=== PATIENT | female | born 1955 | race Caucasian/White ===

== ENCOUNTER 2017-03-10 17:13 | Emergency (ER) | payer BC ==
[~2017-03-10] VITALS: Ht 157.5 cm; Wt 81.3 kg
[2017-03-10 18:53] LABS: MCH 28.9 PG (29.0-34.0); MCHC 32.8 G/DL (30.0-36.0); MEAN PLAT.VOLUME 10.3 uM^3 (9.5-12.4); PLATELET COUNT 253 K/uL (156-360); RBC DIS.WIDTH-CV 12.8 % (11.8-14.6); RBC DIS.WIDTH-SD 41.4 % (39-53); RED BLOOD COUNT 4.09 M/uL (3.80-5.20); WHITE BLOOD COUNT 9.6 K/uL (4.1-10.2)
[2017-03-10] MEDS ORDERED: ZOFRAN ODT4 MG PO (18:56)
[2017-03-10] MEDS ORDERED: PERCOCET 5/31 TABLET PO (18:56)
[2017-03-10] MEDS ORDERED: STOOL SOFTENER250 MG PO (18:56)
[2017-03-10 19:05] LABS: CHLORIDE 105 mEq/L (99-109); POTASSIUM 4.6 mEq/L (3.7-5.4); SODIUM 137 mEq/L (136-147)
[2017-03-10 19:08] LABS: GLUCOSE 108 mg/dL (70-99)
[2017-03-10 19:09] LABS: ANION GAP 12 MEQ/L (2-14); TOTAL BILIRUBIN 0.2 mg/dL (0.0-1.0)
[2017-03-10 19:11] LABS: ALKALINE PHOSPHATASE 100 IU/L (3-129); GFR ESTIMATE (CALCULATED) > 59 mL/min/
[2017-03-10 19:12] LABS: UREA NITROGEN (BUN) 12 mg/dL (9-23)
[2017-03-10 23:15] VITALS: BP 151/66
== END 2017-03-10 23:15 | disposition home or self-care (01) ==
LOC: EME 17:13 → EDBD 17:13 → EME 23:15
PROVIDERS: Nurse Practitioner Family
PROC: 2W3RX1Z Immobilization of Left Lower Leg using Splint (ICD-10-PCS; principal; 2017-03-10)
DX: S82.142A Displaced bicondylar fracture of left tibia, initial encounter for closed fracture (principal); W17.89XA Other fall from one level to another, initial encounter; K21.9 Gastro-esophageal reflux disease without esophagitis
CPT/HCPCS: 73560; 73700; 80053; 85027; 86900; 86901; 93005; 99281; 99283; J2270; J2405